=== PATIENT | female | born 1990 | race Caucasian/White ===

== ENCOUNTER 2017-04-29 12:16 | Emergency (ER) | payer OTHER, SELFPAY ==
[2017-04-29 12:17] VITALS: BP 114/68; PULSE 66; RESP 16; TEMP 36.7; O2SAT 100; BMI 22.9
--- NOTE | 2017-04-29 12:43 | US_ITS ---
STUDY: FIRST TRIMESTER OBSTETRICAL ULTRASOUND REASON FOR EXAM: Female, 27 years old. Bleeding. LMP: February 03, 2017. TECHNIQUE: Transabdominal and Transvaginal PRIOR ULTRASOUND: None. FINDINGS: There is no demonstrated intrauterine gestational sac. There is no demonstrated yolk sac. The placenta is non-visualized. There is no demonstrated embryo ( pole). The estimated gestation age (EGA) by LMP is 12 weeks, 1 days. The estimated date of delivery (SARANYA) by LMP is November 10, 2017. The uterus measures 12.9 cm x 6.6 cm x 6.1 cm. The endometrium is thickened and measures 12 mm.. There is no demonstrated uterine fibroid. The cervix is closed. The right ovary measures 2.9 cm x 2.8 cm x 2.5 cm. There is no right ovarian cyst. There is no visualized right adnexal mass or complex lesion. The left ovary measures 2.1 cm x 2.2 cm x 3.0 cm. There is no left ovarian cyst. There is no visualized left adnexal mass or complex lesion. There is no fluid in the cul de sac. US/Transvaginal w/Preg US IMPRESSION: No intrauterine gestational sac is seen. Thickened endometrium. Electronically Signed: Christopher Leigh MD at 14:02 EST Tel [phone], Service support ,
--- NOTE | 2017-04-29 12:45 | ED.VISSUMM ---
- ER Visit Summary Date of Service: 04/29/17 Chief Complaint: Vaginal bleeding in History of Present Illness: The patient is a 27 F presenting with vaginal bleeding. She states she has had pelvic cramping for the past 2-3 days. She started having heavy bleeding today. She believes she passed tissue at home. She is a Ab2, she has had 2 miscarriages, twin . She is approximately 12 weeks . She had a syncopal episode just prior to arrival. Physical Examination: Vitals are stable. Patient is afebrile. Alert no acute distress. HEENT exam is unremarkable. Neck is supple. Lungs are clear and equal bilaterally. Heart is regular rate and rhythm. Abdomen is soft suprapubic tenderness, no rebound or guarding. Extremities are unremarkable. Skin is warm and dry. Remainder of exam is unremarkable. Emergency Department Course and Treatment: Orthostatics are positive. CBC chemistries unremarkable. Quant is 3358. Blood type A negative. She was given RhoGam IM. She is given IV fluids. On pelvic exam she has clots which were removed with cotton tip swab. Continued bleeding. Ultrasound was obtained which showed no evidence of IUP, thickened endometrium. Discussed with Dr. Tineo who reviewed her ultrasound results. She recommends removing clots from the cervix with ring forceps as well as rectal Cytotec. Clots were removed on pelvic exam with ring forceps. She was given rectal Cytotec with improvement. Initially her heart rate went from 60s to 120 with standing. After fluids it improved to 60s to 100 with standing. Patient is feeling improved. Discussed with Dr. Tineo who sent to Dr. Chicas to the ED for bedside evaluation. Patient was seen by Dr. Chicas. The bleeding has now resolved. He feels it is okay to discharge her home to follow-up with her SCALE OPERATOR. Patient is advised return ED for worsening complaints. Disposition: Discharge home Impression: Completed miscarriage This note was generated with [employer] dictation software. It may contain incorrect words, spelling, and punctuation that were not noted in review of the chart prior to signing ED Disposition - Plan for ED Patient: Chief Complaint: Vag Bld, Preg Instructions: ED Miscarriage Completed Referrals: Súal Chicas MD [STAFF PHYSICIAN] - Chet Santana MD [Primary Care Provider] -
[2017-04-29] MEDS: 0.9% Normal Saline 1,000 ML 999 ML IV (12:47)
--- NOTE | 2017-04-29 12:49 | ED.DCSUM_ITS ---
- ER Visit Summary Date of Service: 04/29/17 Chief Complaint: Vaginal bleeding in History of Present Illness: The patient is a 27 F presenting with vaginal bleeding. She states she has had pelvic cramping for the past 2-3 days. She started having heavy bleeding today. She believes she passed tissue at home. She is a Ab2, she has had 2 miscarriages, twin . She is approximately 12 weeks . She had a syncopal episode just prior to arrival. Physical Examination: Vitals are stable. Patient is afebrile. Alert no acute distress. HEENT exam is unremarkable. Neck is supple. Lungs are clear and equal bilaterally. Heart is regular rate and rhythm. Abdomen is soft suprapubic tenderness, no rebound or guarding. Extremities are unremarkable. Skin is warm and dry. Remainder of exam is unremarkable. Emergency Department Course and Treatment: Orthostatics are positive. CBC chemistries unremarkable. Quant is 3358. Blood type A negative. She was given RhoGam IM. She is given IV fluids. On pelvic exam she has clots which were removed with cotton tip swab. Continued bleeding. Ultrasound was obtained which showed no evidence of IUP, thickened endometrium. Discussed with Dr. Tineo who reviewed her ultrasound results. She recommends removing clots from the cervix with ring forceps as well as rectal Cytotec. Clots were removed on pelvic exam with ring forceps. She was given rectal Cytotec with improvement. Initially her heart rate went from 60s to 120 with standing. After fluids it improved to 60s to 100 with standing. Patient is feeling improved. Discussed with Dr. Tineo who sent to Dr. Chicas to the ED for bedside evaluation. Patient was seen by Dr. Chicas. The bleeding has now resolved. He feels it is okay to discharge her home to follow-up with her MEAL PACKER. Patient is advised return ED for worsening complaints. Disposition: Discharge home Impression: Completed miscarriage This note was generated with [employer] dictation software. It may contain incorrect words, spelling, and punctuation that were not noted in review of the chart prior to signing ED Disposition - Plan for ED Patient: Chief Complaint: Vag Bld, Preg Instructions: ED Miscarriage Completed Referrals: Saúl Chicas MD [STAFF PHYSICIAN] - Chet Santana MD [Primary Care Provider] -
--- NOTE | 2017-04-29 12:55 | ED.RN ---
pt unable to tolerate ortho vital signs at present. pt becomes dizzy while moving in bed
[2017-04-29 13:00] LABS: Absolute Lymphocyte Count 2.22 X10^3/ul (0.83-4.51); Basophil# 0.02 X10^3/uL; Basophil% 0.2 % (0-1); Eosinophil# 0.07 X10^3/uL; Eosinophils% 0.7 % (0-5); Hematocrit 39.2 % (37-47); Hemoglobin 12.8 g/dl (12.0-15.0); Lymphocyte # 2.22 X10^3/ul (4.0); Lymphocyte % 22.4 % (19-41); Mean Corp Hgb Conc 32.7 g/gl (32-36); Mean Corpuscular Hgb 28.4 pg (27.0-32.0); Mean Corpuscular Volume 86.9 fL (81-99); Mean Platelet Vol. 9.6 fl (6.2-12.0); Monocyte# 0.57 X10^3/uL; Monocyte% 5.8 % (0-10); Neutrophil # 7.01 X10^3/uL (2.7-7.7); Neutrophil % 70.7 % (47-70); POSITIVE COUNT NO; POSITIVE DIFFERENTIAL NO; POSITIVE MORPHOLOGY NO; Platelet Count 289 K/mm3 (150-450); RBC Distribution Width CV 13.3 % (11.6-14.6); RBC Distribution Width SD 42.3 fl (35.1-43.9); Red Blood Count 4.51 M/mm3 (4.2-5.4); White Blood Count 9.9 K/mm3 (4.4-11.0)
[2017-04-29 13:19] LABS: Anion Gap 9 (5-15); BUN 7 mg/dL (7-18); BUN/Creat Ratio 9.8 RATIO (10-20); Calcium,Total 8.7 mg/dL (8.5-10.1); Chloride 105 mmol/L (98-107); Creatinine, Serum 0.72 mg/dL (0.55-1.02); EST Glomerular Filtration Rate 102 mL/min (>60); Est Glom Filt Rate - Afr Amer 124 mL/min (>60); Estimated Creatinine Clearance 99.56 ml/min; Glucose 97 mg/dL (70-110); Potassium 3.4 mmol/L (3.5-5.1); Sodium Level 138 mmol/L (136-145)
[2017-04-29 13:40] LABS: hCG Titer Quant., Serum 3358 mIU/mL (<9 non-preg)
[2017-04-29 13:42] VITALS: BP 122/62; PULSE 71; RESP 18; O2SAT 98
[2017-04-29 14:08] VITALS: BP 107/69; BP 112/64; BP 122/76; PULSE 120; PULSE 69; PULSE 74; PULSE 85; RESP 18; O2SAT 100
[2017-04-29] MEDS: miSOPROStol 200 MCG Tablet 1000 MCG RECTAL (15:45)
[2017-04-29 15:49] VITALS: PULSE 73; RESP 19; O2SAT 98
--- NOTE | 2017-04-29 16:42 | NURSING ---
DR SINCLAIRS IN WITH PATIENT
[2017-04-29 16:49] VITALS: BP 109/73; PULSE 78; RESP 16; O2SAT 100
--- NOTE | 2017-04-29 16:52 | ED.DEP ---
ED Disposition - Plan for ED Patient: Chief Complaint: Vag Bld, Preg Instructions: ED Miscarriage Completed Referrals: Chet Santana MD [Primary Care Provider] - Saúl Chicas MD [STAFF PHYSICIAN] -
[2017-04-29 17:28] VITALS: BP 109/70; PULSE 72; RESP 16; O2SAT 100
--- NOTE | 2017-04-29 17:47 | ED.RN ---
DISCHARGE INSTRUCTIONS REVIEWED IN DETAIL WITH PT AND SPOUSE, EMPHASIZED NEED TO RETURN TO ED IMMEDIATELY BY EMS FOR INCREASED BLEEDING, PASSING OF LARGE CLOTS, HEART RATE REMAINING GREATER THAN 100BPM WHILE SITTING, NEW OR INCREASING PAIN, SIGNS OF INFECTION, OR ANOTHER SYNCOPAL EPISODE. PT AND SPOUSE VOICE UNDERSTANDING. PT GIVEN BOOKLET ON MISCARRIAGE, MEMORY PACKET. IV DC'D, ANGIOCATH INTACT. PT WHEELED OUT TO VAN BY SPOUSE.
== END 2017-04-29 17:51 | disposition home or self-care (01) ==
PROVIDERS: Emergency Provider Emergency Medicine; Family Provider Family Medicine; PCP Family Medicine
DX: O03.9 Complete or unspecified spontaneous abortion without complication (principal)
CPT/HCPCS: 76817; 80048; 84702; 85025; 86850; 86900; 90384; 96360; 96361; 96372; 99285; J7030; A4216; J2790

== ENCOUNTER 2020-11-29 18:48 | Emergency (ER) | payer OTHER, SELFPAY ==
[2020-11-29] VITALS (7 sets, daily range): BP systolic 115–145; BP diastolic 70–107; PULSE 68–82; RESP 12–22; TEMP 36.8; O2SAT 96–100; BMI 25.9
--- NOTE | 2020-11-29 18:55 | NURSING ---
NO OLD EKGS
--- NOTE | 2020-11-29 19:15 | EKG12_ITS ---
Test Reason : CP Blood Pressure : / mmHG Vent. Rate : 079 BPM Atrial Rate : 079 BPM P-R Int : 154 ms QRS Dur : 094 ms QT Int : 374 ms P-R-T Axes : 063 079 046 degrees QTc Int : 428 ms Normal sinus rhythm Normal ECG Confirmed by BOB EDUARDO, SAVANNAH ([id number]), desk editor JAIME CALLAWAY ([id number]) on 12/04/2020 8:21:14 AM Referred By: RAE/YAMILETH/SHAMA Confirmed By:KELVIN ROJAS MD
--- NOTE | 2020-11-29 19:20 | ED.RN ---
NO OLD EKGS ON FILE AT THIS TIME
--- NOTE | 2020-11-29 19:30 | EDS_ITS ---
HPI History of Present Illness Chief Complaint: Chest Pain Narrative Narrative: Patient presents with her because she has had chest pain since Thursday, 6 days ago. She states she feels a tightness in her chest that has been relatively constant. Sometimes is worse after she eats. However, today she experienced left shoulder and arm pain. She describes it more as a pressure sensation and sharp and stabbing in nature. She is nauseated but denies any vomiting. On occasion she feels short of breath. She is somewhat vague in her symptoms but was concerned more about her heart. She denies any significant past medical history. No leg swelling. She denies any dysuria or hematuria. No diarrhea. No exacerbating or alleviating factors. [facility] Medical History (Updated 11/29/20 @ 22:12 by Raj Glez MD) Appendicitis, acute Home Medications NK 04/29/17 [History Last Taken Unknown] Allergy/AdvReac Type Severity Reaction Status Date / Time No Known Allergies Allergy Verified 11/29/20 18:56 Surgical History (Updated 11/29/20 @ 18:54 by Saul Mckeon) History of appendectomy Social History Smoking Status: Never smoker ROS ROS ED ROS Narrative Constitutional: No fever, no chills. HEENT: No sore throat. No neck pain. No loss of vision. No rhinorrhea. Cardiovascular: Positive chest tightness/chest pain. No palpitations. No pedal edema. Respiratory: No cough, rare shortness of breath. Abdominal: No abdominal pain. Positive nausea. No vomiting. Genitourinary: No dysuria. No hematuria. Musculoskeletal: Left shoulder pain today. Left arm pain today. Neurologic: No headaches. No dizziness. No lightheadedness. Skin: No rash. No change in color. Psychiatric: No depression. No anxiety. EXAM Physical Exam Narrative Exam Narrative: Afebrile. Vital signs noted. HEENT: Normocephalic. Atraumatic. PERRL, EOMI. Neck soft and supple. No point tenderness or step off. Cardiovascular: Regular rate and rhythm. No murmurs, rubs, or gallops appreciated. Respiratory: No tachypnea. Lungs clear to auscultation bilaterally. Gastrointestinal: Abdomen soft, nontender, with normoactive bowel sounds. No rebound or guarding. Neurological: Awake. Alert. Nonfocal, nonlateralizing. Skin: No rash. Normal color. No pallor. Musculoskeletal: No pedal edema. Full range of motion extremities. Const Vital Signs: 11/29/20 18:49 11/29/20 18:53 11/29/20 19:41 Temperature 98.2 F 98.2 F Temperature Source Oral Oral Pulse Rate 82 75 Respiratory Rate 16 22 H Blood Pressure 145/107 H 145/107 H Blood Pressure Mean 119 119 Pulse Ox 99 100 99 Oxygen Delivery Method Room Air Room Air Room Air 11/29/20 20:11 11/29/20 21:18 11/29/20 22:06 Temperature Temperature Source Pulse Rate 70 78 76 Respiratory Rate 20 H 14 20 H Blood Pressure 131/82 H 129/76 H 115/70 Blood Pressure Mean 98 93 85 Pulse Ox 98 96 99 Oxygen Delivery Method Room Air Room Air Room Air Heart Score History: Slightly/Non-Suspicious ECG: Normal Age: </= 45 years Risk Factors: No Risk Factors Troponin: </= Normal Limit Score: 0 MDM MDM MDM Narrative Medical decision making narrative: Chest pain work-up was pursued. Her EKG demonstrates normal sinus rhythm at 79 bpm without ectopy or acute ST changes. Her chest x-ray shows no acute process. CBC is grossly normal. D-dimer is negative. CMP is also grossly unremarkable. High-sensitivity troponin is no rmal at 4. Lipase is low at 64. Upon repeat examination, she feels improved. I do feel that this is a 6-hour troponin. Additionally, I calculate her heart score is low. I feel she can be discharged safely home with follow-up to her primary care provider. Return instructions to the emergency department were reviewed. Patient and her are agreeable to the plan. Disposition is discharged home in stable condition. Lab Data Attestation: I reviewed the patient's lab results. Labs: Laboratory Results - last 24 hr 11/29/20 11/29/20 11/29/20 19:00 19:00 19:00 WBC 8.3 RBC 4.66 Hgb 13.1 Hct 41.0 MCV 88.0 MCH 28.1 MCHC 32.0 RDW Std Deviation 42.1 RDW Coeff of Ángel 13.2 Plt Count 336 MPV 9.6 Immature Gran % (Auto) 0.200 Neut % (Auto) 71.7 H Lymph % (Auto) 19.9 [place] % (Auto) 7.1 Eos % (Auto) 0.4 Baso % (Auto) 0.7 Absolute Neuts (auto) 6.0 Absolute Lymphs (auto) 1.66 Nucleated RBC % 0 D-Dimer Quant (PE/DVT) < 0.27 L Sodium 139 Potassium 3.5 Chloride 107 Carbon Dioxide 27.0 Anion Gap 5 BUN 10 Creatinine 0.97 Estim Creat Clear Calc 68.88 Est GFR (MDRD) Af Amer 85 Est GFR (MDRD) Non-Af 70 BUN/Creatinine Ratio 10.3 Glucose 104 Calcium 9.0 Total Bilirubin 0.20 AST 10 L ALT 21 Alkaline Phosphatase 84 Troponin I High Sens 4 Total Protein 7.8 Albumin 4.2 Globulin 3.6 Albumin/Globulin Ratio 1.2 Lipase 64 L Radiography Diagnostic Testing: Radiology Impression Chest X-Ray 11/29/20 19:50 IMPRESSION: Normal x-ray examination of the chest. Electronically Signed: Fitz Allen DO at 20:19 EDT Tel [phone], Service support , Discharge Plan Triage Chief Complaint: Chest Pain ED Provider: Raj Glez Dx/Rx/DC Orders Clinical Impression: Chest pain Instructions: ED Chest Pain, Uncertain Cause Prescriptions: No Action NK RF: 0 Primary Care Provider: Chet Santana Referrals: Chet Santana DO [Primary Care Provider] - 12/03/20 Disposition Disposition: Home, Self Care
[2020-11-29 19:44] LABS: Absolute Lymphocyte Count 1.66 X10^3/uL (0.83-4.51); Basophil# 0.06 X10^3/uL; Basophil% 0.7 % (0-1); Eosinophil# 0.03 X10^3/uL; Eosinophils% 0.4 % (0-5); Hemoglobin 13.1 g/dL (12.0-15.0); Lymphocyte # 1.66 X10^3/ul (0.83-4.51); Lymphocyte % 19.9 % (19-41); Mean Corpuscular Hgb 28.1 pg (27.0-32.0); Mean Platelet Vol. 9.6 fl (6.2-12.0); Monocyte# 0.59 X10^3/uL; Monocyte% 7.1 % (0-10); NRBC Flagged by Analyzer 0 % (0-5); Neutrophil # 5.97 X10^3/uL (2.7-7.7); Neutrophil % 71.7 % (47-70); Platelet Count 336 K/mm3 (150-450); RBC Distribution Width CV 13.2 % (11.6-14.6); RBC Distribution Width SD 42.1 fl (35.1-43.9); Red Blood Count 4.66 M/mm3 (4.2-5.4); White Blood Count 8.3 K/mm3 (4.4-11.0)
[2020-11-29] MEDS: Aspirin 81 MG TAB.CHEW 324 MG PO (19:44)
[2020-11-29] MEDS: 0.9% Normal Saline 1,000 ML 1000 ML IV (19:44)
--- NOTE | 2020-11-29 19:50 | RAD_ITS ---
STUDY: X-RAY CHEST REASON FOR EXAM: Female, 30 years old. Chest pain. Pain radiates down left arm. Generalized weakness since yesterday. TECHNIQUE: Single AP portable view of the chest. COMPARISON: None. FINDINGS: The lungs are clear and expanded. There is no demonstrated pleural abnormality. Normal size heart. Normal mediastinum and junior. Normal visualized pulmonary arteries. Normal visualized aortic arch and descending thoracic aorta. Normal visualized thoracic spine. Normal visualized ribs, clavicles, and shoulders. There is no demonstrated abnormality of the visualized soft tissue structures of the upper abdomen. RAD/Chest 1 View (Portable) IMPRESSION: Normal x-ray examination of the chest. Electronically Signed: Fitz Allen DO at 20:19 EDT Tel [phone], Service support ,
[2020-11-29 19:58] LABS: D-Dimer Quantitative (DVT/PE) < 0.27 FEU/ug/m (0.27-0.49)
[2020-11-29 20:00] LABS: ALB/GLOB Ratio 1.2 RATIO (0.9-2.4); AST(SGOT) 10 U/L (15-37); Alanine Aminotransfer ALT/SGPT 21 U/L (13-56); Albumin, Serum 4.2 g/dL (3.2-5.0); Alkaline Phosphatase 84 U/L (45-117); Anion Gap 5 (5-15); BUN 10 mg/dL (7-18); BUN/Creat Ratio 10.3 RATIO (10-20); Chloride 107 mmol/L (98-107); Creatinine, Serum 0.97 mg/dL (0.55-1.02); EST Glomerular Filtration Rate 70 mL/min (>60); Est Glom Filt Rate - Afr Amer 85 mL/min (>60); Estimated Creatinine Clearance 68.88 ml/min; Globulin 3.6 g/dL (2.2-4.2); Glucose 104 mg/dL (74-106); Lipase 64 U/L (73-393); Potassium 3.5 mmol/L (3.5-5.1); Protein, Total 7.8 g/dL (6.4-8.2); Sodium Level 139 mmol/L (136-145); Troponin-I HS 4 pg/mL (3.0-54.0)
== END 2020-11-29 22:52 | disposition home or self-care (01) ==
PROVIDERS: Emergency Provider Emergency Medicine; PCP Family Medicine
DX: R07.9 Chest pain, unspecified (principal); M25.512 Pain in left shoulder; M79.602 Pain in left arm
CPT/HCPCS: 71045; 80053; 83690; 84484; 85025; 85379; 93005; 96360; 96361; 99285; J7030; A4216

== ENCOUNTER 2021-12-06 13:26 | Emergency (ER) | payer OTHER, SELFPAY ==
[2021-12-06 13:27] VITALS: BP 120/83; PULSE 71; RESP 18; TEMP 36.6; O2SAT 99; BMI 24.0
--- NOTE | 2021-12-06 14:18 | VDLE_ITS ---
Reason For Study: Pain RIGHT CFV is compressible, spontaneous, phasic, competent and demonstrates normal augmentation. FV is compressible, spontaneous, phasic, competent and demonstrates normal augmentation. POP V is compressible, spontaneous, phasic, competent and demonstrates normal augmentation. T/P Trunk is compressible. PTV is compressible. RT PerV is compressible. Rt GSV and varicosity in the calf are dilated and non compressible consistent with acute SVT Rt GSV thigh is compressible. Procedure This is a venous duplex using B-mode, color flow and spectral Doppler. Exam performed portable in ED. A preliminary report was called and/or faxed to Dr. Suresh. VL/Venous Duplex US, Unilateral Interpretation Summary There is no evidence of right lower extremity deep vein thrombosis. Superficial thrombophlebitis right great saphenous vein and varicosities noted within the calf. The more pro ximal distal right great saphenous vein is patent and compressible Ordering Physician: Caleb Suresh Referring Physician: Chet Santana Performed By: Juju Figueroa, JENNIFER, RVT
--- NOTE | 2021-12-06 14:30 | EDS_ITS ---
HPI History of Present Illness Chief Complaint: Lower Extremity Injury Narrative Narrative: This is a 31-year-old female presenting with pain in her right tibia and right calf. She noticed it about 3 days ago. She states it started with a little bit of pain in the distal tibia and became red and now she has visible veins in tibial region now extending into the right medial calf. She denies any trauma to the area. No history of DVT/PE. Patient not anticoagulated. She states he is otherwise healthy. Patient did give to a child 8 weeks ago and is concerned for DVT. She does not have any chest pain or shortness of breath. [facility] Medical History Appendicitis, acute Home Medications NK 12/06/21 [History Last Taken Unknown] Allergy/AdvReac Type Severity Reaction Status Date / Time No Known Allergies Allergy Verified 12/06/21 13:28 Surgical History History of appendectomy Social History Smoking Status: Never smoker ROS ROS ED Constitutional Constitutional ED: Denies chills or fever(s) Eyes Eyes: Denies change in vision ENT ENT ED: Denies rhinorrhea or sore throat Cardiovascular Cardiovascular: Denies chest pain or palpitations Respiratory/Chest Respiratory/Chest: Denies cough or dyspnea Gastrointestinal Gastrointestinal: Denies abdominal pain or constipation Genitourinary Genitourinary ED: Denies dysuria or hematuria Musculoskeletal Musculoskeletal: Reports other Details: Right leg pain Integumentary Reports other Details: Erythema over right tibia and right calf Neurologic Neurologic: Denies headache(s) or paresthesias Psychiatric Psychiatric: Denies anxiety or depression EXAM Physical Exam Const Vital Signs: 12/06/21 13:27 Temperature 97.9 F Temperature Source Temporal Pulse Rate 71 Respiratory Rate 18 Blood Pressure 120/83 H Blood Pressure Mean 95 Pulse Ox 99 Oxygen Delivery Method Room Air Positive well nourished General Appearance ED: NAD HEENT Reports moist mucous membranes normocephalic Eyes PERRL Neck full ROM Resp normal respiratory effort and no retractions Cardio regular rate and regular rhythm Neuro oriented x3 and CN's II-XII intact bilaterally Sensorium / Orientation: alert Motor Exam: strength 5/5 throughout Psych mental status grossly normal Skin Skin Narrative: Varicose veins noted over the distal tibia and medial calf region. There are some mild erythema around some of the areas. No lymphangitic streaking. No crepitance. MDM MDM MDM Narrative Medical decision making narrative: Duplex performed on the right lower extremity shows superficial thrombophlebitis as well as varicosities without DVT. Patient counseled on these findings. Patient will be placed on daily aspirin. She has compression stockings and encouraged to use them. Discussed to follow-up with her PCP to ensure resolution. Impression: 1. Superficial thrombophlebitis 2. Varicose veins Lab Data Attestation: I reviewed the patient's lab results. Discharge Plan Triage Chief Complaint: Lower Extremity Injury ED Provider: Caleb Suresh Dx/Rx/DC Orders Prescriptions: No Action NK Primary Care Provider: Chet Santana Referrals: Chet Santana DO [Primary Care Provider] -
== END 2021-12-06 15:24 | disposition home or self-care (01) ==
PROVIDERS: Emergency Provider Student in an Organized Health Care Education/Training Program; PCP Family Medicine; Visit Provider Student in an Organized Health Care Education/Training Program
DX: I80.01 Phlebitis and thrombophlebitis of superficial vessels of right lower extremity (principal); I83.91 Asymptomatic varicose veins of right lower extremity
CPT/HCPCS: 93971; 99282